=== PATIENT | male | born 1945 | race Caucasian/White ===

== ENCOUNTER 2018-08-16 05:33 | Inpatient (IN) | payer MEDICARE ==
[2018-08-16] VITALS (8 sets, daily range): BP systolic 119–157; BP diastolic 54–64
--- NOTE | 2018-08-16 05:44 | PHYS DOC ---
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 Review of Systems Review of Systems Since the patient is on BiPAP is unable to answer many questions, but it denies chest pain Current Medications Current Medications Current Medications Medications (Trade) Dose Ordered Sig/Butch Start Time Stop Time Status Last Admin Dose Admin Albuterol/ Ipratropium (Duoneb) 3 ml 1X ONCE 08/16/18 06:00 08/16/18 06:01 Furosemide (Lasix) 80 mg 1X ONCE 08/16/18 06:00 08/16/18 06:01 UNV Nitroglycerin (Nitrostat) 0.4 mg 1X ONCE 08/16/18 06:00 08/16/18 06:01 UNV 08/16/18 05:55 0.4 MG Nitroglycerin/ Dextrose 250 ml @ 0 mls/hr 1X ONCE 08/16/18 05:45 08/16/18 05:46 UNV Allergies Allergies Allergies Coded Allergies Type Severity Reaction Last Updated Verified No Known Drug Allergies 08/16/18 No Physical Exam Physical Exam Constitutional: Well developed, well nourished, + acute distress, HENT: Normocephalic, atraumatic, bilateral external ears normal, oropharynx moist, no oral exudates, nose normal. [] Eyes: PERRLA, EOMI, conjunctiva normal, no discharge. [] Neck: Normal range of motion, no tenderness, supple, no stridor. [] Cardiovascular:Heart rate regular rhythm, no murmur [] Lungs & Thorax: Diminished bilaterally with crackles at the bases [] Abdomen: Bowel sounds normal, soft, no tenderness, no masses, no pulsatile masses. [] Skin: Warm, dry, no erythema, no rash. [] Back: No tenderness, no CVA tenderness. [] Extremities: No tenderness, no cyanosis, no clubbing, ROM intact, + 3 edema. [] Neurologic: Alert and oriented X 3, normal motor function, normal sensory function, no focal deficits noted. [] Psychologic: Affect normal, judgement normal, mood normal. [] Current Patient Data Vital Signs Vital Signs Date Time Temp Pulse Resp B/P (MAP) Pulse Ox O2 Delivery O2 Flow Rate FiO2 08/16/18 05:55 100 142/66 EKG EKG Sinus tachycardia[] Radiology/Procedures Radiology/Procedures Pulmonary edema[] Course & Med Decision Making Course & Med Decision Making Pertinent Labs and Imaging studies reviewed. (See chart for details) [] Final Impression Final Impression [] Problems: (1) Pulmonary edema Qualifiers: Qualified Codes: J81.0 - Acute pulmonary edema (2) Respiratory failure Qualifiers: Qualified Codes: J96.01 - Acute respiratory failure with hypoxia Dragon Disclaimer Dragon Disclaimer This electronic medical record was generated, in whole or in part, using a voice recognition dictation system. TAQUERIA VANN DO 08/16/18 0639: Adult General EKG EKG Sinus tachycardia, rate 127, normal axis, no ST elevations or depressions. Radiology/Procedures Impressions: PORTABLE CHEST 1V History: Dyspnea. Comparison: None are available Cardiomediastinal silhouette: Unchanged. Lungs: Patchy multifocal opacities are identified throughout both lungs. Pleura: Small effusions bilaterally Pneumothorax: None visualized Support Devices: None. Impression: Multifocal airspace opacities through both lungs most compatible with infiltrate or pneumonia. Electronically signed by: Luke Lowe MD (08/16/2018 8:50 AM) [facility] DICTATED AND SIGNED BY: LUKE LOWE MD DATE: 08/16/18 0845 CC: TAQUERIA VANN DO; CLIFF DAMON MD; ZANDRA PATTERSON MD ~ Course & Med Decision Making Course & Med Decision Making The patient has been tolerating BiPAP well. His ABG had a pH of 7.305, PCO2 41.9 , PCO2 125 bicarbonate 20.9. The patient was placed on nitroglycerin drip initially at 40 g. Based on blood pressure we have step angulo decreased to 5 g. The patient will get a Figueroa catheter and 80 mg of Lasix IV. Reviewing his medication list he is not on a diuretic. Patient has significant lower extremity edema up to the waist, 4+ pitting bilaterally. The patient recently spent 8 [facility] the [facility] for his infection and endocarditis. He is still on daily infusions of IV antibiotics. His labs are significant for an elevated white count of 20. His hemoglobin is 9.5. His troponin is 0.667, this is likely demand driven. The chest x-ray official reading shows multiple opacities consistent with infiltrate, but the patient has the appearance of pulmonary edema patient. He is also already on IV antibiotics. The patient is getting good urine output from the Lasix. His blood pressure is stable. His heart rate has indeed creased to 110. I discussed the patient with Dr. Patterson and he has accepted the patient for admission to the ICU. Critical Care Time Critical care time was greater than 45 minutes minutes exclusive of procedures. CLIFF DAMON MD Aug 16, 2018 05:44 TAQUERIA VANN DO Aug 16, 2018 06:39
[2018-08-16] MEDS ORDERED: FUROSEMIDE 40 MG/4 ML VIAL ONE (05:51)
[2018-08-16] MEDS ORDERED: NITROGLYCERIN SUBLINGUAL 0.4 MG BOTTLE OF 25. SL ONE ×2 (06:00→06:15)
[2018-08-16] MEDS ORDERED: IPRATRPIUM/ALBUTEROL 0.5/2.5MG 3 ML NEBU. NEB ONE (06:00)
[2018-08-16] MEDS ORDERED: NITROGLYCERIN PREMIX 250 ML IV ONE (06:00)
[2018-08-16 06:02] LABS: BASO # 0.3 x10^3/uL (0.0-0.2); BASO % 2 % (0-3); EOS # 0.1 x10^3/uL (0.0-0.7); EOS % 1 % (0-3); HEMATOCRIT 30.6 % (39.0-53.0); HEMOGLOBIN 9.5 g/dL (13.0-17.5); LYMPH # 3.5 x10^3/uL (1.0-4.8); LYMPH % 17 % (24-48); MEAN CORPUSCULAR HEMOGLOBIN 28 pg (25-35); MEAN CORPUSCULAR HGB CONC 31 g/dL (31-37); MEAN CORPUSCULAR VOLUME 89 fL (79-100); MONO # 1.6 x10^3/uL (0.0-1.1); MONO % 7 % (0-9); NEUT # 15.4 x10^3uL (1.8-7.7); NEUT % 74 % (31-73); PLATELET COUNT 455 x10^3/uL (140-400); RED BLOOD COUNT 3.43 x10^6/uL (4.30-5.70); RED CELL DISTRIBUTION WIDTH 16.8 % (11.5-14.5); WHITE BLOOD COUNT 20.9 x10^3/uL (4.0-11.0)
[2018-08-16] MEDS ORDERED: NITROGLYCERIN SUBLINGUAL 0.4 MG BOTTLE OF 25. SL STA (06:09)
[2018-08-16 06:14] LABS: ALBUMIN/GLOBULIN RATIO 0.4 (1.0-1.7); CREATININE 1.1 mg/dL (0.7-1.3); POTASSIUM 3.9 mmol/L (3.5-5.1); TOTAL BILIRUBIN 0.5 mg/dL (0.2-1.0); TOTAL PROTEIN 6.5 g/dL (6.4-8.2)
[2018-08-16 06:17] LABS: BGAS PH 7.31 (7.35-7.46)
[2018-08-16 06:29] LABS: INFLUENZA A PATIENT NEGATIVE (NEGATIVE); INFLUENZA B PATIENT NEGATIVE (NEGATIVE)
[2018-08-16] MEDS ORDERED: FUROSEMIDE 40 MG/4 ML VIAL IVP ONE ×2 (06:30→11:45)
[2018-08-16 07:20] LABS: % BANDS 1 % (0-9); % BASOS 1 % (0-3); % EOS 1 % (0-5); % LYMPHS 14 % (24-48); % MONOS 13 % (0-10); % SEGS 70 % (35-66); HYPOCHROMIA SLIGHT; PLT ESTIMATE INCREASED (ADEQUATE); POLYCHROMASIA SLIGHT
[2018-08-16 07:21] LABS: ANISOCYTOSIS SLIGHT
[2018-08-16] MEDS ORDERED: ONDANSETRON PF 4 MG/2 ML VIAL. IV PRN (07:30)
--- NOTE | 2018-08-16 08:54 | RAD ---
PORTABLE CHEST 1V History: Dyspnea. Comparison: None are available Cardiomediastinal silhouette: Unchanged. Lungs: Patchy multifocal opacities are identified throughout both lungs. Pleura: Small effusions bilaterally Pneumothorax: None visualized Support Devices: None. Impression: Multifocal airspace opacities through both lungs most compatible with infiltrate or pneumonia. Electronically signed by: Luke Lowe MD (08/16/2018 8:50 AM) [facility]
[2018-08-16] MEDS ORDERED: AMPICILLIN 2 GM in IV NORMAL SALINE 100ML 100 ML IV ONE (09:45)
[2018-08-16] MEDS ORDERED: IPRATRPIUM/ALBUTEROL 0.5/2.5MG 3 ML NEBU. ONE (10:16)
[2018-08-16 10:25] LABS: AMORPHOUS SEDIMENT,UR PRESENT /HPF; BACTERIA,URINE 0 /HPF (0-FEW); BILIRUBIN,URINE NEG (NEG); CLARITY,URINE CLEAR; COLOR,URINE YELLOW; GLUCOSE,URINE NEG (NEG); HYALINE CASTS, URINE OCC /HPF; NITRITE,URINE NEG (NEG); RBC,URINE 0 /HPF (0-2); UROBILINOGEN,URINE 0.2 mg/dL (0.2 mg/dL)
[2018-08-16] MEDS ORDERED: FAMO40TA4 PO (11:30)
[2018-08-16] MEDS ORDERED: CEFT1FRO2 IV (11:30)
[2018-08-16] MEDS ORDERED: AMPI500C2 PO (11:30)
[2018-08-16] MEDS ORDERED: DILT240C2 PO (11:30)
[2018-08-16] MEDS ORDERED: DIPH25CA58 PO (11:30)
[2018-08-16] MEDS ORDERED: MULT-505 PO (11:30)
[2018-08-16] MEDS ORDERED: CALC-157 PO (11:30)
[2018-08-16] MEDS ORDERED: FEXO180T16 PO (11:30)
[2018-08-16] MEDS ORDERED: ACET325T9 PO (11:30)
[2018-08-16] MEDS ORDERED: LISI-338 PO (11:30)
[2018-08-16] MEDS ORDERED: PANT40TA3 PO (11:30)
--- NOTE | 2018-08-16 15:19 | HP ---
ADMIT DATE: 08/16/2018 HISTORY OF PRESENT ILLNESS: The patient is a 73-year-old male patient who was residing at [place] after a prolonged stay at [facility] where he was treated for bacteremia with sepsis secondary to pyelonephritis that was present on admission. 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 He was basically started treatment with IV Rocephin as well as ampicillin and was transferred after stabilization to [facility] to continue the process of rehabilitation. Apparently early this morning, he became extremely short of breath and was transferred to [facility] Emergency Room where he was evaluated. An attempt was made to transfer him to [facility], has failed as they do have beds available and therefore, a decision was made to admit him to our Intensive Care Unit awaiting the transfer to [facility] and/or [facility]; however, the family made it clear that they wanted him to go back to [facility]. PAST MEDICAL AND SURGICAL HISTORY: Significant for atrial fibrillation, chronic back pain, benign prostatic hypertrophy. He is also blind, has a history of lung cancer with metastasis to the bone and liver as well and spleen. He has history of deep vein thrombosis, detached retina, gastroesophageal reflux disease, hypertension, osteoporosis, sciatica, chronic sinusitis, obstructive sleep apnea, benign prostatic hypertrophy, and varicose veins. 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 He had vitrectomy, transurethral resection of prostate. He underwent transesophageal echocardiogram, esophagogastroduodenoscopy, bilateral cataract extraction. FAMILY HISTORY: Positive for diabetes, breast cancer as well as testicular cancer. SOCIAL HISTORY: He is , lives with his . He is a former smoker, quit smoking more than a year ago. He does not use smokeless tobacco and does not use any recreational drugs. ALLERGIES: HE IS ALLERGIC TO CODEINE AND LEVOFLOXACIN WELL HYDROCODONE. MEDICATIONS: He was transferred to this facility to continue on following medications: Diphenhydramine 25 mg p.o. at bedtime, fexofenadine 180 mg once a day, ceftriaxone 1 g IV daily. He is on ampicillin dihydrate 2 grams IV every 4 hourly. He is on diltiazem 240 mg extended release 1 tablet once a day, lisinopril 5 mg once a day, acetaminophen 650 mg every 6 hours, calcium carbonate with vitamin D 1 tablet daily, famotidine 40 mg once a day, Protonix 40 mg daily and multivitamin 1 tablet once a day. PHYSICAL EXAMINATION: GENERAL: On arrival to the Emergency Room, apparently, the patient was pale, markedly tachypneic. No jaundice, cyanosis, or thyromegaly. No jugular venous distension. No limb edema. VITAL SIGNS: His heart rate was 127, respiratory rate was 13, blood pressure 144/66, temperature was 98.3, respiratory rate was 98 on BiPAP machine. HEAD, EYES, EARS, NOSE AND THROAT: Showed normocephalic, atraumatic. NECK: Supple. HEART: Showed normal first and second heart sounds. No gallop, rub or murmur. CHEST: Clear to auscultation. No crepitation or rhonchi. ABDOMEN: Distended, soft, nontender. No guarding or rigidity. No organomegaly. Hernial orifice intact. Bowel sounds normal. NEUROLOGIC: He was sleepy, but arousable. All cranial nerves intact. EXTREMITIES: He moves extremities without difficulty, although he is mostly bed bound. LABORATORY AND DIAGNOSTIC DATA: Showed white cell count 20,900, hemoglobin 9.5, hematocrit 30, MCV 89 and platelet count of 155,000 with normal manual differential. His blood gases on admission showed pH of 7.31, pCO2 of 42, pO2 of 125, bicarbonate 21 and FiO2 of 65%. Serum sodium was 139, potassium 3.9, chloride 102, bicarbonate 24, anion gap of 13, BUN 20, creatinine 1.1, estimated GFR was 66 mL/min. His glucose was 116, calcium was 8. Total bilirubin, AST, ALT, alkaline phosphatase were normal. Lactic acid was 1.4. Troponin was 0.667 and total protein was 6.5, albumin 2. His D-dimer was high at 2.98. Urinalysis showed the urine was yellow, clear with a pH of 5, specific gravity 1.010. The urine was negative for protein, glucose, ketones; negative for blood, nitrite and leukocyte esterase. There are no rbc's, no wbc's, and there are no bacteria. His influenza A and B were negative. His chest x-ray showed that the cardiomediastinal silhouette is unchanged. Lungs showed patchy multifocal opacities are identified throughout both lungs, pleura, small effusion bilaterally, pneumothorax non-visualized, support devices none. IMPRESSION: Multifocal airspace opacity throughout both lungs, most compatible infiltrate or pneumonia. ASSESSMENT AND PLAN: My plan is to contact the [facility]. I will also add Zyvox. Unfortunately, he is allergic to LEVAQUIN. I have spoken with Dr. Bran to expand his coverage and if he is accepted at [facility], we will transfer him as soon as he gets a bed there. ZANDRA TUCKER MD DR: MEHRAN/mikey JOB#: [id number] / [id number]
--- NOTE | 2018-08-16 18:14 | EKG ---
[address] [address] Test Date: 2018-08-16 Test Time: 05:45:21 Pat Name: GIOVANNY JACOBO Department: Room: ICU02 1 Gender: M Glaucoma Specialist: : [id number] Requested By: CLIFF DAMON Order Number: [id number] Reading MD: Edmond Tovar Measurements Intervals [place] Rate: 127 P: -16 IN: 148 QRS: 11 QRSD: 98 T: 63 QT: 302 QTc: 444 Interpretive Statements SINUS TACHYCARDIA LOW LIMB LEAD VOLTAGE ST & T ABNORMALITY, CONSIDER HIGH LATERAL ISCHEMIA OR LEFT VENTRICULAR STRAIN ABNORMAL ECG Electronically Signed On 08-24-2018 13:21:21 FINANCIAL ANALYST ACCOUNTANT by Edmond Tovar
== END 2018-08-16 17:00 | disposition short-term general hospital (02) | DRG 871 ==
LOC: ER 05:33 → ICU 07:30
PROVIDERS: ADMIT Internal Medicine; ATTEND Internal Medicine
PROC: 5A09357 Assistance with Respiratory Ventilation, Less than 24 Consecutive Hours, Continuous Positive Airway Pressure (ICD-10-PCS; principal; 2018-08-16)
DX: A41.9 Sepsis, unspecified organism (principal); J18.9 Pneumonia, unspecified organism; E66.9 Obesity, unspecified; G47.33 Obstructive sleep apnea (adult) (pediatric); H54.7 Unspecified visual loss; I10 Essential (primary) hypertension; I48.0 Paroxysmal atrial fibrillation; J32.9 Chronic sinusitis, unspecified; K21.9 Gastro-esophageal reflux disease without esophagitis; M81.0 Age-related osteoporosis without current pathological fracture; N40.0 Benign prostatic hyperplasia without lower urinary tract symptoms; G89.29 Other chronic pain; Z80.3 Family history of malignant neoplasm of breast; Z80.43 Family history of malignant neoplasm of testis; Z83.3 Family history of diabetes mellitus; Z85.118 Personal history of other malignant neoplasm of bronchus and lung; Z86.718 Personal history of other venous thrombosis and embolism; Z87.891 Personal history of nicotine dependence; Z88.1 Allergy status to other antibiotic agents; Z98.41 Cataract extraction status, right eye; Z98.42 Cataract extraction status, left eye; Z85.05 Personal history of malignant neoplasm of liver; Z85.830 Personal history of malignant neoplasm of bone; Z88.5 Allergy status to narcotic agent; Z88.8 Allergy status to other drugs, medicaments and biological substances
CPT/HCPCS: 36415; 36600; 71045; 80053; 81001; 82803; 83605; 84484; 85007; 85025; 85379; 87040; 87641; 87804; 93005; 94640; 94660; J0290; J0696; J1940; J2020; J3490; J7620